=== PATIENT | male | born 1995 | race African-American/Black ===

== ENCOUNTER 2017-10-13 01:30 | Emergency (ER) | payer SELFPAY ==
[2017-10-13] MEDS ORDERED: IPRATROPIUM/ALBUTEROL 0.5-2.5 MG/3 ML AMPUL NEB ONE (02:46)
--- NOTE | 2017-10-13 03:26 | RADIOLOGY REPORT (SQ) ---
EXAM DESCRIPTION: XR CHEST 2 VIEWS COMPLETED DATE/TME: 10/13/2017 02:46 CLINICAL HISTORY: 22 years Male, cough COMPARISON: None. FINDINGS: Increased lung volume, clear parenchyma, normal cardiac silhouette, and intact bony thorax. IMPRESSION: No acute cardiopulmonary findings.
[2017-10-13] MEDS ORDERED: BENZONATATE 100 MG CAPSULE PO ONE (03:47)
--- NOTE | 2017-10-13 03:48 | ER Document Report ---
ED General - General Chief Complaint: Cold Symptoms Stated Complaint: COUGH Time Seen by Provider: 10/13/17 02:47 - HPI Patient complains to provider of: Cough Notes: Patient coming in for cough ongoing for approximately a week 6 slight production. Patient denies any fever chills nausea vomiting. Patient denies any respiratory pathology. Patient states most intermittently. Patient states family member at home recently diagnosed with pneumonia. Patient states has been sleeping when I see on the fan running. Patient upon my evaluation looks to be nontoxic no recent travel no recent antibiotics - Related Data Allergies/Adverse Reactions: ibuprofen Adverse Reaction (Verified 10/13/17 03:18) Past Medical History - Social History Smoking Status: Current Some Day Smoker Chew tobacco use (# tins/day): No Frequency of alcohol use: None Drug Abuse: None Family History: Reviewed & Not Pertinent Patient has suicidal ideation: No Patient has homicidal ideation: No Renal/ Medical History: Denies: Hx Peritoneal Dialysis Review of Systems - Review of Systems Constitutional: No symptoms reported EENT: No symptoms reported Cardiovascular: No symptoms reported Respiratory: Cough, Wheezing Gastrointestinal: No symptoms reported Genitourinary: No symptoms reported Male Genitourinary: No symptoms reported Musculoskeletal: No symptoms reported Skin: No symptoms reported Hematologic/Lymphatic: No symptoms reported Neurological/Psychological: No symptoms reported -: Yes All other systems reviewed and negative Physical Exam - Vital signs Vitals: Temp Pulse Resp BP Pulse Ox 99.2 F 93 18 120/75 96 10/13/17 01:54 10/13/17 01:54 10/13/17 01:54 10/13/17 01:54 10/13/17 01:54 Interpretation: Normal - General General appearance: Appears well, Alert - HEENT Head: Normocephalic, Atraumatic Eyes: Normal Pupils: PERRL - Respiratory Respiratory status: No respiratory distress Chest status: Nontender Breath sounds: Normal, Wheezing - fine Chest palpation: Normal - Cardiovascular Rhythm: Regular Heart sounds: Normal auscultation Murmur: No - Abdominal Inspection: Normal Distension: No distension Bowel sounds: Normal Tenderness: Nontender Organomegaly: No organomegaly - Back Back: Normal, Nontender - Extremities General upper extremity: Normal inspection, Nontender, Normal color, Normal ROM , Normal temperature General lower extremity: Normal inspection, Nontender, Normal color, Normal ROM , Normal temperature, Normal weight bearing. No: Kike's sign - Neurological Neuro grossly intact: Yes Cognition: Normal Orientation: AAOx4 [place] Coma Scale Eye Opening: Spontaneous [place] Coma Scale Verbal: Oriented [place] Coma Scale Motor: Obeys Commands [place] Coma Scale Total: 15 Speech: Normal Motor strength normal: LUE, RUE, LLE, RLE Sensory: Normal - Psychological Associated symptoms: Normal affect, Normal mood - Skin Skin Temperature: Warm Skin Moisture: Dry Skin Color: Normal Course - Re-evaluation Re-evalutation: 10/13/17 04:57 Chest x-ray is negative patient with some relief at the rate and treatment of his cough. Cough suppression methods were discussed with patient. More likely viral URI was discharged home - Vital Signs Vital signs: Temp Pulse Resp BP Pulse Ox 98.0 F 103 H 16 129/73 H 99 10/13/17 04:04 10/13/17 04:04 10/13/17 04:04 10/13/17 04:04 10/13/17 04:04 Discharge - Discharge Clinical Impression: Viral URI, Cough Condition: Good Disposition: HOME, SELF-CARE Instructions: Cough Suppressant & Expectorant Medications, Upper Respiratory Illness ([facility]) Additional Instructions: Your chest x-ray showed no signs of pneumonia. More likely a viral upper respiratory tract infection. Please use inhaler that we gave you here in ER 2 puffs every 4 hours as needed for any shortness of breath or cough. Also recommend using honey mixed in your favorite beverage to aid in cough suppression. He may also use [id number] honey lozenges or cough drops. He may also use [id number] cough medications. I will give you a prescription for Tessalon Perles which is a cough suppressant that we use here in the hospital. If he did not receive any relief with the Tessalon Perles that we gave you here tonight you do not need to get the prescription filled He can expect to have a cough for approximately 2-3 weeks. Please avoid smoking please avoid people that do smoke Prescriptions: Benzonatate [Tessalon Perle 100 mg Capsule] 100 mg PO Q8HP PRN #20 cap PRN Reason: Forms: Smoking Cessation Education
[2017-10-13] MEDS ORDERED: ALBUTEROL SULFATE HFA (90 MCG/PUFF) 8 GM MDI (1 MDI/ER DISP) IH ONE (04:01)
[2017-10-13 04:12] VITALS: BP 129/73
== END 2017-10-13 04:12 | disposition home or self-care (01) ==
LOC: ER 01:30
DX: J06.9 Acute upper respiratory infection, unspecified (principal); B97.89 Other viral agents as the cause of diseases classified elsewhere; R05 Cough; R06.2 Wheezing; F17.200 Nicotine dependence, unspecified, uncomplicated
CPT/HCPCS: 94640; 99283; 71046; J3490; J7620